=== PATIENT | female | born 1985 | race Caucasian/White ===

== ENCOUNTER → 2023-03-21 | Outpatient (CLI) | payer BC, SELFPAY ==
--- NOTE | 2023-03-21 12:42 | US_ITS ---
STUDY: THYROID ULTRASOUND REASON FOR EXAM: Female, 37 years old. THYROID NODULE TECHNIQUE: Ultrasound evaluation of the thyroid was performed with real-time and static tay-scale imaging. COMPARISON: None. FINDINGS: RIGHT LOBE: The right lobe of the thyroid gland measures 4.8 cm x 1.3 cm x 1.3 cm. There is a heterogeneous echotexture. There are no demonstrated solid, cystic or complex lesions. LEFT LOBE: The left lobe of the thyroid gland measures 4.7 cm x 1.5 cm x 1.4 cm. There is a homogeneous echotexture. There are no demonstrated solid, cystic or complex lesions. ISTHMUS: The isthmus measures 5 mm. There is evidence of a 2 cm x 1.7 cm x 0.9 cm hypoechoic solid nodule with intranodular vascularity. Biopsy recommended. The regional lymph nodes are normal. US/Thyroid IMPRESSION: Heterogeneous appearance of both lobes of the thyroid gland. 2 cm x 1.7 cm x 0.9 cm hypoechoic solid nodule with a intranodular vascularity in the isthmus. Biopsy recommended. Electronically Signed: Umair Page MD at 15:13 EDT ,
== END | disposition home or self-care (01) ==
PROVIDERS: PCP Family Medicine
DX: E04.1 Nontoxic single thyroid nodule (principal)
CPT/HCPCS: 76536

== ENCOUNTER → 2024-07-13 | Outpatient (CLI) | payer BC, SELFPAY ==
[2024-07-13 13:10] LABS: Thyroid Stim Hormone (TSH) 0.601 uIU/mL (0.358-3.740)
[2024-07-13 14:06] LABS: Vitamin D,25 Hydroxy 24.7 ng/mL
[2024-07-14 08:12] LABS: PROGESTERONE 0.1 ng/mL (.)
== END | disposition home or self-care (01) ==
LOC: MFPLAB 10:36
PROVIDERS: PCP Family Medicine; Visit Provider Family Medicine
DX: E07.9 Disorder of thyroid, unspecified (principal); R53.83 Other fatigue
CPT/HCPCS: 36415; 82306; 84144; 84443

== ENCOUNTER → 2025-08-15 | Outpatient (CLI) | payer BC, SELFPAY ==
[2025-08-15 15:36] LABS: AST(SGOT) 16 U/L (<=31); Alanine Aminotransfer ALT/SGPT 12 U/L (<=34); Albumin, Serum 4.4 g/dL (3.5-5.0); Alkaline Phosphatase 62 U/L (35-104); Anion Gap 13 (5-15); BUN 8 mg/dL (4-19); BUN/Creat Ratio 14.0 RATIO (10-20); CORTISOL AM 8.97 ug/dL (6.02-18.40); Calcium,Total 9.2 mg/dL (7.6-11.0); Carbon Dioxide 19.9 mmol/L (21.0-32.0); Chloride 104 mmol/L (98-108); Cholesterol 157 mg/dL (<=200); FOLATES,SERUM (FOLIC ACID) 15.30 ng/mL (4.60-34.80); Ferritin 49 ng/mL (22-378); Follicle Stimulating Hormone 2.8 mIU/mL; Free T3 3.2 pg/mL (2.18-3.98); Globulin 3.2 g/dL (2.2-4.2); Glucose 90 mg/dL (70-99); Low Density Lipoprotein Calc. 87 mg/dL; Potassium 4.0 mmol/L (3.3-5.1); Triglycerides 98 mg/dL; Very Low Density Lipoprotein 20 mg/dL (5-40); Vitamin B12 175 pg/mL (180-914); Vitamin D,25 Hydroxy 26.3 ng/mL (30-100); cholesterol:hdl ratio screen 3.10
[2025-08-15 16:21] LABS: Iron Binding Capacity,Total 317 ug/dL (250-450)
[2025-08-15 16:27] LABS: CRP < 3.00 mg/L (0.0-3.0); Iron 64 ug/dL (50-170); Iron Binding Capacity,Unsat 253 ug/dL (228-428); Magnesium 2.1 mg/dL (1.5-2.2)
[2025-08-15 18:42] LABS: Hematocrit 44.6 % (37-47); Hemoglobin 14.9 g/dL (12.0-15.0); Mean Corp Hgb Conc 33.4 g/dL (32-36); Mean Corpuscular Volume 88.5 fL (81-99); Mean Platelet Vol. 11.5 fl (6.2-12.0); Platelet Count 231 K/mm3 (150-450); RBC Distribution Width CV 12.4 % (11.6-14.6); RBC Distribution Width SD 40.1 fl (35.1-43.9); Red Blood Count 5.04 M/mm3 (4.2-5.4); White Blood Count 7.1 K/mm3 (4.4-11.0)
[2025-08-17 04:07] LABS: PROGESTERONE 9.3 ng/mL (.)
[2025-08-29 11:09] LABS: Copper, Serum or Plasma 107 ug/dL (80-158); Estrogen, Total, Serum 426 pg/mL (.); Testosterone, % Free 1.04 % (0.50-2.80); Testosterone, Free 0.27 ng/dL (0.10-0.85); Thyroxin Bind Glob (TBG) 28 ug/mL (13-39); Vitamin A, Retinol 36.7 ug/dL (20.1-62.0); Zinc, Plasma or Serum 98 ug/dL (44-115)
== END | disposition home or self-care (01) ==
LOC: MTLAB 11:42
PROVIDERS: PCP Family Medicine; Referring Provider Family Medicine; Visit Provider Family Medicine
DX: Z13.220 Encounter for screening for lipoid disorders (principal); R53.83 Other fatigue
CPT/HCPCS: 36415; 80053; 80061; 82085; 82239; 82306; 82525; 82533; 82607; 82672; 82728; 82746; 83001; 83002; 83036; 83525; 83540; 83550; 83735; 84144; 84270; 84402; 84403; 84439; 84442; 84443; 84481; 84590; 84630; 84681; 85027; 85652; 86140